=== PATIENT | female | born 1985 | race Asian ===

== ENCOUNTER 2019-04-04 23:32 | Emergency (ER) | payer OTHER ==
--- OUTSIDE RECORDS SUMMARY | 2019-04-04 23:50 | XMS REPORT | Continuity of Care Document ---
:1985 External Reference #:[id number] Author Name Forest Paez M.D. Address [address] [facility] [place] [address] Care Team Providers Name Role Phone Khushbu Watkins EXECUTIVE COMPENSATION ANALYST - Nurse Care Team Information Stamp Press Operator [phone] Practitioner Problems Active Problems Provider Date Malignant neoplasm of female breast Forest Paez M.D. Onset: 03/17/2019 Chemotherapy Forest Paez M.D. Onset: 03/17/2019 Radiation dermatitis Forest Paez M.D. Onset: 03/17/2019 Social History Type Date Description Comments Sex Unknown ETOH Use Occasionally consumes alcohol Tobacco Use Start: Unknown Patient has never smoked Recreational Drug Use Denies Drug Use Smoking Status Reviewed: 03/17/19 Patient has never smoked Allergies, Adverse Reactions, Alerts Active Allergies Reaction Severity Comments Date Paclitaxel 03/17/2019 Medications Active Medications SIG Qnty Indications Ordering Provider Date Letrozole Unknown 2.5mg Tablets Vitamin D 3000 - 3500 Unknown 2000Unit Tablets daily Calcium + D + K Unknown [id number] Tablets Lupron Depot (3-Month) Unknown 11.25mg Kit Immunizations Description No Information Available Vital Signs Description No Information Available Results Description No Information Available Procedures Description No Information Available Medical Devices Description No Information Available Encounters Description No Information Available Assessments Date Code Description Provider 03/17/2019 C50.111 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 Plan of Treatment 03/17/2019 - Forest Paez M.D.C50.111 Malignant neoplasm of central portion of right female breastComments:Smoking can increase the risk of developing or worsening any eye related disease, as well as affect your overall health. If you are a smoker, we strongly recommend that you quit.If you are not a smoker, we strongly recommend that you do not start.Follow up:1YEAR, DFE You can expect to have your eyes dilated at your next visit. If Dr. Paez orders any additional testing, it may require extra time. We recommend that you bring sunglasses, as dilation drops often make you light sensitive until they wear off. We always recommend you bring someone to drive you home if you are uncomfortable driving with your eyes dilated. If you have any questions before your next visit, feel free to call our office at .h52.15 Myopia, bilateralComments:You have Myopia, or near sightedness. I have given you a prescription for glasses. Functional Status Description No Information Available Mental Status Description No Information Available Referrals Description No Information Available
[2019-04-05 01:34] LABS: Activated Partial Thrombo Time 38.8 seconds (26.0-38.0); INR 0.94 (0.82-1.09)
[2019-04-05 01:39] LABS: ALT 25 U/L (7-52); AST 40 U/L (13-39); Albumin/Globulin Ratio 1.4 (1-3); Alkaline Phosphatase 118 U/L (34-104); Anion Gap 5 mmol/L (2-11); BUN/Creatinine Ratio 20.8 (8-20); Blood Urea Nitrogen 11 mg/dL (6-24); CO2 Carbon Dioxide 28 mmol/L (22-32); Calcium 9.7 mg/dL (8.6-10.3); Chloride 106 mmol/L (101-111); EGFR African American 159.8 (>60); EGFR Non-African American 132.1 (>60); Globulin 2.9 g/dL (2-4); Glucose 106 mg/dL (70-100); Potassium 3.9 mmol/L (3.5-5.0); Sodium 139 mmol/L (135-145); Total Protein 6.9 g/dL (6.4-8.9)
[2019-04-05 01:46] LABS: HCG Pregnancy < 0.60 mIU/mL
[2019-04-05 01:49] LABS: Hematocrit 21 % (35-47); Hemoglobin 6.7 g/dL (12.0-16.0); Mean Corpuscular HGB Conc 31 g/dL (31-36); Mean Corpuscular Hemoglobin 23 pg (27-31); Mean Corpuscular Volume 72 fL (80-97); Mean Platelet Volume 8.5 fL (7.4-10.4); Platelet Count 228 10^3/uL (150-450); Red Blood Count 2.96 10^6 /uL (3.70-4.87); Red Cell Distribution Width 24 % (10-15); White Blood Count 3.5 10^3/uL (3.5-10.8)
[2019-04-05 02:27] LABS: ABS Eosinophils 0.1 10^3/ul (0-0.6); ABS Lymphocytes 1.2 10^3/ul (1.0-4.8); ABS Monocytes 0.4 10^3/ul (0-0.8); ABS Neutrophils 1.8 10^3/ul (1.5-7.7); Eosinophil % 1.7 %; Lymphocyte % 34.3 %; Nucleated Red Blood Cells % 0.1
[2019-04-05 02:30] LABS: Microcytosis 1+
[2019-04-05 02:31] LABS: Polychromasia 1+
--- NOTE | 2019-04-05 02:33 | ED ---
Dizziness - HPI Summary HPI Summary: Pt is a 34 y/o F presenting to the ED with a chief complaint of a low Hgb. She is a breast cancer pt who has been in tx for the past year in [facility]. She had pre- surgical labwork done in [facility] yesterday, noticed her Hgb was low, and called her oncologist who recommended coming in to have a blood transfusion. She reports some more fatigue than usual as well as lightheadedness. She denies blood in stool or hematuria. - History Of Current Complaint Chief Complaint: EDGeneral Stated Complaint: NEEDS BLOOD TRANSFUSION PER PT Time Seen by Provider: 04/05/19 02:15 Hx Obtained From: Patient Onset/Duration: Still Present, Gradually Timing: Constant Severity Initially: Mild Severity Currently: Mild Character: Lightheaded Aggravating Factor(s): Exertion Alleviating Factor(s): Nothing Associated Signs And Symptoms: Negative: Blood In Stool PMH/Surg Hx/FS Hx/Imm Hx Previously Healthy: Yes Endocrine/Hematology History: Denies: Hx Blood Transfusions Cardiovascular History: Denies: Hx Hypertension - Cancer History Cancer Type, Location and Year: breast cancer, currently preparing for surg on Infectious Disease History: No Infectious Disease History: Denies: Traveled Outside the [place] in Last 30 Days - Family History Known Family History: Negative: Diabetes - Social History Occupation: Student Alcohol Use: None Hx Substance Use: No Substance Use Type: Reports: None Hx Tobacco Use: No Smoking Status (MU): Never Smoked Tobacco Review of Systems Positive: Fatigue Negative: Other - blood in stool Negative: hematuria Neurological: Other - lightheadedness All Other Systems Reviewed And Are Negative: Yes Physical Exam - Summary Physical Exam Summary: Appearance: Well-appearing, Well-nourished, lying in bed comfortable Skin: Warm, dry, no obvious rash Eyes: sclera anicteric, conjunctival pallor ENT: mucous membranes moist Neck: deferred Respiratory: No signs of respiratory distress Cardiovascular: Appears well perfused, pulses are nml Abdomen: deferred Musculoskeletal: Moving all 4 extremities without obvious discomfort Neurological: Awake and alert, mentation is normal, speech is fluent and appropriate Psychiatric: affect is normal, does not appear anxious or depressed Triage Information Reviewed: Yes Vital Signs On Initial Exam: Initial Vitals Temp Pulse Resp BP Pulse Ox 98.2 F 76 15 111/70 100 04/04/19 23:35 04/04/19 23:35 04/04/19 23:35 04/04/19 23:35 04/04/19 23:35 Vital Signs Reviewed: Yes Procedures - Sedation Patient Received Moderate/Deep Sedation with Procedure: No Diagnostics - Vital Signs Vital Signs Temp Pulse Resp BP Pulse Ox 04/04/19 23:35 98.2 F 76 15 111/70 100 - Laboratory Lab Results: Lab Results 04/05/19 04/05/19 04/05/19 Range/Units 01:15 01:15 01:15 WBC 3.5 (3.5-10.8) 10^3/uL RBC 2.96 L (3.70-4.87) 10^6 /uL Hgb 6.7 L (12.0-16.0) g/dL Hct 21 L (35-47) % MCV 72 L (80-97) fL MCH 23 L (27-31) pg MCHC 31 (31-36) g/dL RDW 24 H (10-15) % Plt Count 228 (150-450) 10^3/uL MPV 8.5 (7.4-10.4) fL Neut % (Auto) 50.1 % Lymph % (Auto) 34.3 % [place] % (Auto) 12.5 % Eos % (Auto) 1.7 % Baso % (Auto) 1.4 % Absolute Neuts (auto) 1.8 (1.5-7.7) 10^3/ul Absolute Lymphs (auto) 1.2 (1.0-4.8) 10^3/ul Absolute Monos (auto) 0.4 (0-0.8) 10^3/ul Absolute Eos (auto) 0.1 (0-0.6) 10^3/ul Absolute Basos (auto) 0.0 (0-0.2) 10^3/ul Absolute Nucleated RBC 0.0 10^3/ul Nucleated RBC % 0.1 INR (Anticoag Therapy) 0.94 (0.82-1.09) APTT 38.8 H (26.0-38.0) seconds Sodium 139 (135-145) mmol/L Potassium 3.9 (3.5-5.0) mmol/L Chloride 106 (101-111) mmol/L Carbon Dioxide 28 (22-32) mmol/L Anion Gap 5 (2-11) mmol/L BUN 11 (6-24) mg/dL Creatinine 0.53 (0.51-0.95) mg/dL Est GFR ( Amer) 159.8 (>60) Est GFR (Non-Af Amer) 132.1 (>60) BUN/Creatinine Ratio 20.8 H (8-20) Glucose 106 H (70-100) mg/dL Calcium 9.7 (8.6-10.3) mg/dL Total Bilirubin 0.30 (0.2-1.0) mg/dL AST 40 H (13-39) U/L ALT 25 (7-52) U/L Alkaline Phosphatase 118 H (34-104) U/L Total Protein 6.9 (6.4-8.9) g/dL Albumin 4.0 (3.2-5.2) g/dL Globulin 2.9 (2-4) g/dL Albumin/Globulin Ratio 1.4 (1-3) Beta HCG, Quant < 0.60 mIU/mL Result Diagrams: 04/05/19 01:15 04/05/19 01:15 Lab Statement: Any lab studies that have been ordered have been reviewed, and results considered in the medical decision making process. Dizzy Course/Dx - Course Course Of Treatment: Pt is a 34 y/o F presenting to the ED with a chief complaint of a low Hgb. She is a breast cancer pt who has been in tx for the past year in [facility]. She had pre-surgical labwork done in [facility] yesterday, noticed her Hgb was low, and called her oncologist who recommended coming in to have a blood transfusion. She reports some more fatigue than usual as well as lightheadedness. She denies blood in stool or hematuria. Pt's physical is normal aside from some conjunctival pallor. Pt was transfused 1 unit of blood in the ED. She will be d/c'ed with dx of anemia, and she is stable to f/u with her oncologist when she needs it. Her doctor in [facility] would like a post transfusion CBC, so that was ordered and will be faxed to their office when available. - Diagnoses Provider Diagnoses: Anemia Discharge ED - Sign-Out/Discharge Documenting (check all that apply): Patient Departure - Discharge Plan Condition: Good Disposition: HOME Patient Education Materials: Anemia (ED) Referrals: Katty BISHOP,Merari Newman [Primary Care Provider] - Additional Instructions: You were transfused 1 unit of packed red blood cells. It did take some time for our blood bank to cross match you, but compatible blood was found. That should get your hemoglobin level above 7, which is the usual threshold for transfusion. Further care is at the discretion of your oncology team in [facility]. I hope you feel better and can resume you studies without too much more trouble! - Billing Disposition and Condition Condition: GOOD Disposition: Home - Attestation Statements Document Initiated by Georgeibe: Yes Documenting Scribe: Tamela Magallanes Provider For Whom Chrissie is Documenting (Include Credential): Sumit Light MD. Scribe Attestation: ITamela, georgeed for Sumit Light MD. on 04/05/19 at 0641. Scribe Documentation Reviewed: Yes Provider Attestation: The documentation as recorded by the scribe, Tamela Magallanes accurately reflects the service I personally performed and the decisions made by me, Sumit Light MD. Status of Scribe Document: Viewed
[2019-04-05 06:57] LABS: Hematocrit 22 % (35-47); Hemoglobin 7.3 g/dL (12.0-16.0); Mean Corpuscular HGB Conc 33 g/dL (31-36); Mean Corpuscular Hemoglobin 24 pg (27-31); Mean Corpuscular Volume 73 fL (80-97); Mean Platelet Volume 8.4 fL (7.4-10.4); Platelet Count 195 10^3/uL (150-450); Red Blood Count 3.06 10^6 /uL (3.70-4.87); Red Cell Distribution Width 25 % (10-15)
[2019-04-05 07:14] LABS: ABS Eosinophils 0.1 10^3/ul (0-0.6); ABS Lymphocytes 1.1 10^3/ul (1.0-4.8); ABS Monocytes 0.4 10^3/ul (0-0.8); ABS Neutrophils 1.5 10^3/ul (1.5-7.7); Eosinophil % 2.1 %; Lymphocyte % 35.3 %; Nucleated Red Blood Cells % 0.2
[2019-04-05 07:41] LABS: Corrected Retic Count 0.7 % (0.5-1.5); Hematocrit for Retic CNT 21 % (35-47); Immature Retic Fraction 0.57; RBC Retic Count 2.93 10^6/uL (3.70-4.87)
--- NOTE | 2019-04-05 07:41 | ED ---
Progress - Progress Note Progress Note: 0728 - Patient's oncologist from [facility] called. Patient's case was discussed. He would like a second unit of blood administered with Hgb goal of 8.0. He also asks that an anemia workup be completed. Patient's discharge order was rescinded. Patient denies any dark stool, rectal bleeding, and vaginal bleeding. Most recent oral chemo was last month for her breast cancer. 1100 - Patient received 2nd unit of blood. Hgb is 9.0. Patient is discharged to home. Course/Dx - Course Course Of Treatment: Pt is a 34 y/o F presenting to the ED with a chief complaint of a low Hgb. She is a breast cancer pt who has been in tx for the past year in [facility]. She had pre-surgical labwork done in [facility] yesterday, noticed her Hgb was low, and called her oncologist who recommended coming in to have a blood transfusion. She reports some more fatigue than usual as well as lightheadedness. She denies blood in stool or hematuria. Patient was initially discharged by Dr. Moise but then her son canal and wanted me to talk to patient's oncologist. Given the hemoglobin of 7.3, and cultures wanted a second unit of blood. Patient was offered admission to the hospital for this but declined. A anemia work up was sent which showed an iron level less than 20. Patient has no bleeding symptoms and is likely suffering from iron deficiency anemia. Patient's hemoglobin to 9.0 following her second unit. Patient was discharged home. Pt's physical is normal aside from some conjunctival pallor. Pt was transfused 1 unit of blood in the ED. She will be d /c'ed with dx of anemia, and she is stable to f/u with her oncologist when she needs it. Her doctor in [facility] would like a post transfusion CBC, so that was ordered and will be faxed to their office when available. - Diagnoses Provider Diagnoses: Iron deficiency anemia - Critical Care Time Critical Care Time: 30-74 min - 45 minutes CCT Discharge ED - Sign-Out/Discharge Documenting (check all that apply): Patient Departure - discharge - Discharge Plan Condition: Good Disposition: HOME Prescriptions: Iron,Carb/Vit C/Vit B12/Folic [Iron 100 Plus Tablet] 1 each PO QAM 30 Days #30 tablet Patient Education Materials: Anemia (ED) Referrals: Katty BISHOP,Merari Newman [Primary Care Provider] - Additional Instructions: You were transfused 2 unit of packed red blood cells. It did take some time for our blood bank to cross match you, but compatible blood was found. Further care is at the discretion of your oncology team in [facility]. I hope you feel better and can resume you studies without too much more trouble! - Billing Disposition and Condition Condition: GOOD Disposition: Home - Attestation Statements Document Initiated by Chrissie: Yes Documenting Scribe: NAMITA COY Provider For Whom Chrissie is Documenting (Include Credential): LES GRANDE MD Scribe Attestation: I, NAMITA COY, scribed for LES GRANDE MD on 04/05/19 at 1245. Scribe Documentation Reviewed: Yes Provider Attestation: The documentation as recorded by the garyibeNAMITA accurately reflects the service I personally performed and the decisions made by me, LES GRANDE MD Status of Scribe Document: Viewed
[2019-04-05 08:33] LABS: LDH 157 U/L (140-271)
[2019-04-05 08:38] LABS: Iron < 20 ug/dL (50-212)
[2019-04-05 08:55] LABS: Ferritin 1.9 ng/mL (11-307)
[2019-04-05 08:59] LABS: Folate 5.15 ng/mL (>3.99)
[2019-04-05 10:50] LABS: Hematocrit 27 % (35-47)
[2019-04-05 11:17] VITALS: BP 110/74
== END 2019-04-05 11:17 | disposition home or self-care (01) ==
LOC: ED 23:32
DX: D50.9 Iron deficiency anemia, unspecified (principal); C50.919 Malignant neoplasm of unspecified site of unspecified female breast; R53.83 Other fatigue; R42 Dizziness and giddiness
CPT/HCPCS: 36415; 36430; 80053; 82607; 82728; 82746; 83010; 83540; 83615; 84702; 85014; 85018; 85025; 85045; 85060; 85610; 85730; 86850; 86900; 86901; 86922; 99283; P9040